=== PATIENT | female | born 2005 | race Caucasian/White ===

== ENCOUNTER 2024-03-24 05:35 | Inpatient (IN) | payer BC ==
[2024-03-24] MEDS ORDERED: Tranexamic Acid IN NACL,ISO-OS 1,000 MG in Premix Bag 1 BAG IV PRN (05:43)
[2024-03-24] MEDS ORDERED: Sodium Chloride 0.9% 20 ML SDV IV PRN (05:43)
[2024-03-24] MEDS ORDERED: Terbutaline 1 MG/ML SDV SUBCUT PRN (05:43)
[2024-03-24] MEDS ORDERED: Sodium Chloride 0.9% 2.5 ML Syringe FLUSH PRN (05:43)
[2024-03-24] MEDS ORDERED: Misoprostol 200 MCG Tab PO PRN (05:43)
[2024-03-24] MEDS ORDERED: Sodium Chloride 0.9% 10 ML Syringe FLUSH PRN (05:43)
[2024-03-24] MEDS ORDERED: Water For Irrigation,Sterile 1,000 ML Container IRR PRN (05:43)
[2024-03-24] MEDS ORDERED: Methylergonovine 0.2 MG/1 ML Amp IM PRN (05:43)
[2024-03-24] MEDS ORDERED: Ondansetron 4 MG/2 ML SDV IVPUSH PRN (05:43)
[2024-03-24] MEDS ORDERED: Carboprost Tromethamine 250 MCG/1 mL Vial IM PRN (05:43)
[2024-03-24] MEDS ORDERED: Butorphanol 2 MG/ML SDV IVPUSH PRN (05:43)
[2024-03-24] MEDS: Lactated Ringers 1,000 ML IV SCH (06:36)
[2024-03-24] MEDS ORDERED: Misoprostol 50 MCG (1/2 of 100 MCG) Tab VAG ONE (07:20)
[2024-03-24] MEDS ORDERED: ePHEDrine 50 MG/ML SDV IVPUSH PRN (07:27)
[2024-03-24] MEDS ORDERED: dexmedeTOMIDine HCl 200 MCG/2 ML SDV EPIDUR SCH (07:30)
[2024-03-24 07:56] LABS: HEMATOCRIT 34.8 % (37.0-47.0); HEMOGLOBIN 11.8 g/dL (12.0-16.0); MEAN CORPUSCULAR HEMOGLOBIN 27.3 pg (28.0-32.0); MEAN CORPUSCULAR HGB CONC 33.9 g/dL (32.0-36.0); MEAN CORPUSCULAR VOLUME 80.6 fL (83.0-99.0); MEAN PLATELET VOLUME 10.4 fL (9.4-12.3); PLATELET COUNT,PLT 283 K/uL (150-400); RED BLOOD CELL COUNT 4.32 M/uL (4.10-5.30)
[2024-03-24] MEDS: Misoprostol 25 MCG (1/4 of 100 MCG) Tab VAG ONE (08:12)
[2024-03-24] MEDS: Misoprostol 25 MCG (1/4 of 100 MCG) Tab ONE (11:12)
[2024-03-24] MEDS: Oxytocin/0.9 % Sodium Chloride 30 UNIT/500 ML BAG IV SCH (12:42)
[2024-03-24] MEDS: Nalbuphine 10 MG/1 ML Vial IVPUSH PRN (15:45)
[2024-03-24] MEDS: Ropivacaine HCl/PF 400 MG in Premix Bag 1 BAG EPIDUR SCH (21:50)
[2024-03-24] MEDS: Phenylephrine HCl In 0.9% NaCl 1 MG/10 ML Syringe IVPUSH PRN (23:56)
[2024-03-25] MEDS: ePHEDrine 50 MG/ML SDV IVPUSH PRN (00:04)
[2024-03-25] MEDS: Lidocaine 1% 50 ML MDV INJECT PRN (07:54)
[2024-03-25] MEDS: Oxytocin/0.9 % Sodium Chloride 30 UNIT/500 ML BAG IV SCH (08:29)
[2024-03-25] MEDS ORDERED: Sennosides 8.6 MG Tab PO PRN (08:36)
[2024-03-25] MEDS ORDERED: Docusate Sodium 100 MG Cap PO PRN (08:36)
[2024-03-25] MEDS: Ibuprofen 800 MG Tab PO PRN (09:56)
[2024-03-25] MEDS: Witch Hazel Medicated Pads 40/Jar TOP PRN (10:11)
[2024-03-25] MEDS: Benzocaine/Menthol 20%-0.5% Spray 78 GM Cannister TOP PRN (10:12)
[2024-03-25] MEDS: Lanolin 100% Cream 7 GM Tube TOP PRN (10:12)
[2024-03-25] MEDS: Acetaminophen 500 MG Tab PO PRN (13:35)
[2024-03-26 10:05] LABS: HEMATOCRIT 30.5 % (37.0-47.0); HEMOGLOBIN 10.1 g/dL (12.0-16.0)
== END 2024-03-26 15:00 | disposition home or self-care (01) | DRG 560 ==
LOC: OBSVTOIN 05:35 → MW.OB 05:35
PROVIDERS: ADMIT Obstetrics & Gynecology; ATTEND Obstetrics & Gynecology
PROC: 10E0XZZ Delivery of Products of Conception, External Approach (ICD-10-PCS; principal; 2024-03-24)
PROC: 10907ZC Drainage of Amniotic Fluid, Therapeutic from Products of Conception, Via Natural or Artificial Opening (ICD-10-PCS; 2024-03-24)
PROC: 3E033VJ Introduction of Other Hormone into Peripheral Vein, Percutaneous Approach (ICD-10-PCS; 2024-03-24)
PROC: 3E0P7VZ Introduction of Hormone into Female Reproductive, Via Natural or Artificial Opening (ICD-10-PCS; 2024-03-24)
PROC: 0UQMXZZ Repair Vulva, External Approach (ICD-10-PCS; 2024-03-24)
PROC: 3E0R3BZ Introduction of Anesthetic Agent into Spinal Canal, Percutaneous Approach (ICD-10-PCS; 2024-03-24)
PROC: 00HU33Z Insertion of Infusion Device into Spinal Canal, Percutaneous Approach (ICD-10-PCS; 2024-03-24)
DX: O48.0 Post-term pregnancy (principal); Z37.0 Single live birth; O70.0 First degree perineal laceration during delivery; Z3A.41 41 weeks gestation of pregnancy; Z86.16 Personal history of COVID-19; Z90.89 Acquired absence of other organs; Z87.891 Personal history of nicotine dependence
CPT/HCPCS: 36415; 51702; 59409; 85014; 85018; 85027; 86592; 86850; 86900; 86901; A9270-GY; J2001; J2300; J2371; J2590; J2795; J3490; J7120